=== PATIENT | female | born 1985 | race Caucasian/White ===

== ENCOUNTER 2017-03-14 22:09 | Emergency (ER) | payer MEDICAID ==
[2017-03-14 23:43] LABS: BASOPHIL % 0.3 % (0-2); PLATELET COUNT 302 x10^3mcL (130-400)
[2017-03-14 23:44] LABS: CALCIUM 8.6 mg/dL (8.5-10.1); CARBON DIOXIDE 25.7 mmol/L (21-32); CHLORIDE SERUM 105 mmol/L (98-107); CREATININE SERUM 0.9 mg/dL (0.6-1.0); GFR1 > 60 mL/min; GLUCOSE SERUM 111 mg/dL (74-106); POTASSIUM SERUM 3.9 mmol/L (3.5-5.1); SODIUM SERUM 140 mmol/L (136-145)
[2017-03-14 23:49] LABS: ALKALINE PHOSPHATASE 88 U/L (46-116); ALT/SGPT 23 U/L (14-59); AST/SGOT 22 U/L (15-37); BILIRUBIN TOTAL 0.2 mg/dL (0.20-1.00); TOTAL PROTEIN, SERUM 8.1 g/dL (6.4-8.2)
[2017-03-14 23:50] LABS: ALBUMIN 3.3 g/dL (3.4-5.0)
[2017-03-15 00:45] VITALS: BP 166/93
== END 2017-03-15 00:45 | disposition home or self-care (01) ==
LOC: ED 22:09
PROVIDERS: Emergency Medicine
DX: N93.8 Other specified abnormal uterine and vaginal bleeding (principal); R51 Headache; R42 Dizziness and giddiness; Z79.3 Long term (current) use of hormonal contraceptives
CPT/HCPCS: 36415

== ENCOUNTER 2018-07-09 20:05 | Emergency (ER) | payer MEDICAID ==
[~2018-07-09] VITALS: Ht 160 cm; Wt 181.9 kg
[2018-07-09 20:22] VITALS: Ht 160 cm; Wt 181.9 kg
[2018-07-09 21:13] VITALS: BP 164/123
== END 2018-07-09 21:13 | disposition home or self-care (01) ==
LOC: ED 20:05
DX: R11.10 Vomiting, unspecified (principal); R19.7 Diarrhea, unspecified; R10.30 Lower abdominal pain, unspecified; R10.11 Right upper quadrant pain; R63.0 Anorexia; E11.9 Type 2 diabetes mellitus without complications; I10 Essential (primary) hypertension; J45.909 Unspecified asthma, uncomplicated
CPT/HCPCS: 82962; Q0162

== ENCOUNTER 2019-05-01 18:07 | Emergency (ER) | payer MEDICAID ==
[~2019-05-01] VITALS: Ht 177.8 cm; Wt 187.8 kg
[2019-05-01 18:25] VITALS: Ht 177.8 cm; Wt 187.8 kg
[2019-05-01 20:21] LABS: microscopic required? YES; urine erythrocyte 3+ (NEGATIVE)
[2019-05-01 21:05] VITALS: BP 147/92
== END 2019-05-01 21:05 | disposition home or self-care (01) ==
LOC: ED 18:07
PROVIDERS: Emergency Medicine
DX: N39.0 Urinary tract infection, site not specified (principal); I10 Essential (primary) hypertension; E11.9 Type 2 diabetes mellitus without complications; J45.909 Unspecified asthma, uncomplicated; E66.9 Obesity, unspecified; Z68.43 Body mass index [BMI] 50.0-59.9, adult